=== PATIENT | male | born 1965 | race Caucasian/White ===

== ENCOUNTER 2017-10-23 09:57 | Inpatient (IN) | payer OTHER ==
[2017-10-23] MEDS ORDERED: GELATIN SIZE 100 SPONGE ×2 (11:49→13:38)
[2017-10-23] MEDS ORDERED: LIDOCAINE 0.5% (MDV) 50 ML INJ (11:50)
[2017-10-23] MEDS ORDERED: ONDANSETRON 4 MG INJ IV (12:00)
[2017-10-23] MEDS ORDERED: niCARdipine 50 MG in SOD CHLORIDE 0.9% 480 ML IV (12:00)
[2017-10-23] MEDS ORDERED: FENTAnyl 50 MCG/ML VIAL ×2 (12:10→14:23)
[2017-10-23] MEDS: THROMBIN 5000 UNIT VIAL (13:15)
[2017-10-23] MEDS: LIDOCAINE 1%/EPI 30 ML INJ (13:16)
[2017-10-23] MEDS: POLYMYXIN/BACITRACIN 1L IRRIG (13:16)
[2017-10-23] MEDS ORDERED: THROMBIN 5000 UNIT VIAL (13:38)
[2017-10-23] MEDS ORDERED: FENTAnyl 50 MCG/ML VIAL IV ×3 (14:00)
[2017-10-23] MEDS ORDERED: DIPHENHYDRAMINE 50 MG INJ IV (14:00)
[2017-10-23] MEDS ORDERED: METOCLOPRAMIDE 10 MG INJ IV (14:00)
[2017-10-23] MEDS: CEFAZOLIN 1 GM/50 ML (PMX) 50 ML IVPB ×2 (14:00→20:04)
[2017-10-23] MEDS ORDERED: HYDROmorphONE (0.2 MG/ML) 10ML SYG IV ×2 (14:00)
[2017-10-23] MEDS ORDERED: MEPERIDINE 25 MG INJ IV (14:00)
[2017-10-23] MEDS ORDERED: SUCCINYLCHOLINE CHLORIDE 100 MG/5 ML SYG IV (14:09)
[2017-10-23] MEDS ORDERED: LIDOCAINE 100 MG SYRINGE (14:09)
[2017-10-23] MEDS ORDERED: ROCURONIUM 50 MG INJ (14:09)
[2017-10-23] MEDS ORDERED: CEFAZOLIN 1 GM INJ (14:09)
[2017-10-23] MEDS ORDERED: SUGAMMADEX SODIUM 200 MG/2 ML VIAL IV (14:09)
[2017-10-23] MEDS ORDERED: PROPOFOL 20 ML (14:09)
[2017-10-23] MEDS: HYDROmorphONE (0.2 MG/ML) 10ML SYG IV ×4 (14:54→15:27)
[2017-10-23] MEDS: ONDANSETRON 4 MG INJ IV (14:54)
[2017-10-23] MEDS: DEXAMETHASONE 4 MG/ML 1 ML INJ IV ×3 (15:00→22:32)
[2017-10-23] MEDS: morphine 2 MG INJ IV ×2 (16:38→22:33)
[2017-10-23] MEDS: DEXTROSE 5%-LR 1,000 ML IV ×2 (16:38→22:33)
[2017-10-23] MEDS: HYDROCODONE/APAP (10/325) TAB PO (20:06)
[2017-10-23] MEDS: AMLODIPINE 2.5 MG TAB PO (20:08)
[2017-10-24] MEDS: CEFAZOLIN 1 GM/50 ML (PMX) 50 ML IVPB ×2 (02:56→13:28)
[2017-10-24] MEDS: HYDROCODONE/APAP (10/325) TAB PO ×2 (02:57→09:29)
[2017-10-24 06:02] LABS: ADD MAN DIFF? NO
[2017-10-24 06:09] LABS: WHITE BLOOD COUNT 19.6 10^3/ul (4.8-10.8)
[2017-10-24 06:09] LABS: ABNORMAL IP MESSAGE 1; BASOPHILS % 0.1 % (0.0-2.0); HEMATOCRIT 34.8 % (42.0-52.0); HEMOGLOBIN 12.1 g/dl (14.0-18.0); LYMPHOCYTES # 0.5 10^3/ul (0.8-2.9); LYMPHOCYTES % 2.7 % (15.0-51.0); MEAN CORPUSCULAR HEMOGLOBIN 31.8 pg (29.0-33.0); MEAN CORPUSCULAR HGB CONC 34.8 g/dl (32.0-37.0); MEAN CORPUSCULAR VOLUME 91.6 fl (82.0-101.0); MEAN PLATELET VOLUME 10.7 fl (7.4-10.4); MONOCYTES % 4.9 % (0.0-11.0); NEUTROPHIL # 17.9 10^3/ul (1.6-7.5); NEUTROPHILS % 91.7 % (39.0-77.0); PLATELET COUNT 208 10^3/UL (140-415); POSITIVE DIFF @See below; RED CELL DISTRIBUTION WIDTH 11.8 % (11.5-14.5)
[2017-10-24] MEDS: DEXAMETHASONE 4 MG/ML 1 ML INJ IV ×2 (06:32→13:28)
[2017-10-24 06:39] LABS: ANION GAP 16 (8-16); BLOOD UREA NITROGEN 18 mg/dl (7-20); CALCIUM 9.1 mg/dl (8.4-10.2); CARBON DIOXIDE 25 mmol/L (21-31); CHLORIDE 105 mmol/L (97-110); CREATININE 0.64 mg/dl (0.61-1.24); GLUCOSE 163 mg/dl (70-220); POTASSIUM 3.8 mmol/L (3.5-5.1); SODIUM 142 mmol/L (135-144)
[2017-10-24] MEDS: LOSARTAN 50 MG TAB PO (09:29)
[2017-10-24] MEDS: DEXTROSE 5%-LR 1,000 ML IV ×3 (10:59→20:55)
[2017-10-24] MEDS ORDERED: morphine 2 MG INJ IV (16:00)
[2017-10-24] MEDS: AMLODIPINE 2.5 MG TAB PO (20:55)
[2017-10-24] MEDS: HYDROCODONE/APAP (5/325) TAB PO (21:04)
[2017-10-25] MEDS: DEXTROSE 5%-LR 1,000 ML IV ×3 (00:35→16:12)
[2017-10-25 08:05] LABS: ADD MAN DIFF? NO
[2017-10-25 08:15] LABS: WHITE BLOOD COUNT 22.4 10^3/ul (4.8-10.8)
[2017-10-25 08:15] LABS: ABNORMAL IP MESSAGE 1; BASOPHILS % 0.1 % (0.0-2.0); HEMATOCRIT 35.6 % (42.0-52.0); HEMOGLOBIN 12.2 g/dl (14.0-18.0); LYMPHOCYTES % 4.4 % (15.0-51.0); MEAN CORPUSCULAR HEMOGLOBIN 32.4 pg (29.0-33.0); MEAN CORPUSCULAR HGB CONC 34.3 g/dl (32.0-37.0); MEAN CORPUSCULAR VOLUME 94.4 fl (82.0-101.0); MEAN PLATELET VOLUME 10.9 fl (7.4-10.4); MONOCYTE # 1.6 10^3/ul (0.3-0.9); MONOCYTES % 7.1 % (0.0-11.0); NEUTROPHIL # 19.7 10^3/ul (1.6-7.5); NEUTROPHILS % 87.9 % (39.0-77.0); PLATELET COUNT 204 10^3/UL (140-415); POSITIVE DIFF @See below; RED BLOOD COUNT 3.77 10^6/ul (4.70-6.10); RED CELL DISTRIBUTION WIDTH 11.9 % (11.5-14.5)
[2017-10-25 08:34] LABS: ALANINE AMINOTRANSFERASE 30 IU/L (13-69); ALBUMIN 3.8 g/dl (3.3-4.9); ALBUMIN/GLOBULIN RATIO 1.26; ALKALINE PHOSPHATASE 50 IU/L (42-121); ANION GAP 15 (8-16); ASPARTATE AMINO TRANSFERASE 30 IU/L (15-46); BILIRUBIN,INDIRECT 0.3 mg/dl (0-1.1); BILIRUBIN,TOTAL 0.3 mg/dl (0.2-1.3); BLOOD UREA NITROGEN 13 mg/dl (7-20); CALCIUM 9.2 mg/dl (8.4-10.2); CARBON DIOXIDE 29 mmol/L (21-31); CHLORIDE 105 mmol/L (97-110); CREATININE 0.63 mg/dl (0.61-1.24); GLUCOSE 121 mg/dl (70-220); POTASSIUM 3.7 mmol/L (3.5-5.1); SODIUM 145 mmol/L (135-144); TOTAL PROTEIN 6.8 g/dl (6.1-8.1)
[2017-10-25] MEDS: LOSARTAN 50 MG TAB PO (08:56)
[2017-10-25] MEDS: HYDROCODONE/APAP (5/325) TAB PO (11:40)
[2017-10-25] MEDS: AMLODIPINE 2.5 MG TAB PO (20:28)
[2017-10-26] MEDS: DEXTROSE 5%-LR 1,000 ML IV ×2 (00:35→08:35)
[2017-10-26 06:50] LABS: ADD MAN DIFF? NO
[2017-10-26 06:51] LABS: WHITE BLOOD COUNT 12.3 10^3/ul (4.8-10.8)
[2017-10-26 06:51] LABS: BASOPHILS % 0.2 % (0.0-2.0); EOSINOPHILS # 0.1 10^3/ul (0.0-0.5); EOSINOPHILS % 0.5 % (0.0-7.0); HEMATOCRIT 36.4 % (42.0-52.0); HEMOGLOBIN 12.5 g/dl (14.0-18.0); LYMPHOCYTES # 1.6 10^3/ul (0.8-2.9); LYMPHOCYTES % 13.3 % (15.0-51.0); MEAN CORPUSCULAR HEMOGLOBIN 31.8 pg (29.0-33.0); MEAN CORPUSCULAR HGB CONC 34.3 g/dl (32.0-37.0); MEAN CORPUSCULAR VOLUME 92.6 fl (82.0-101.0); MEAN PLATELET VOLUME 10.5 fl (7.4-10.4); MONOCYTE # 1.1 10^3/ul (0.3-0.9); MONOCYTES % 9.1 % (0.0-11.0); NEUTROPHIL # 9.4 10^3/ul (1.6-7.5); NEUTROPHILS % 76.5 % (39.0-77.0); PLATELET COUNT 179 10^3/UL (140-415); RED BLOOD COUNT 3.93 10^6/ul (4.70-6.10); RED CELL DISTRIBUTION WIDTH 11.9 % (11.5-14.5)
[2017-10-26 07:19] LABS: ANION GAP 13 (8-16); BLOOD UREA NITROGEN 16 mg/dl (7-20); CARBON DIOXIDE 29 mmol/L (21-31); CHLORIDE 105 mmol/L (97-110); CREATININE 0.69 mg/dl (0.61-1.24); GLUCOSE 98 mg/dl (70-220); POTASSIUM 3.8 mmol/L (3.5-5.1); SODIUM 143 mmol/L (135-144)
[2017-10-26] MEDS: ACETAMINOPHEN 325 MG TAB PO (08:47)
[2017-10-26] MEDS: LOSARTAN 50 MG TAB PO (08:47)
[2017-10-26] MEDS: AMLODIPINE 2.5 MG TAB PO (20:03)
[2017-10-27 08:28] LABS: ADD MAN DIFF? NO
[2017-10-27 08:34] LABS: WHITE BLOOD COUNT 10.7 10^3/ul (4.8-10.8)
[2017-10-27 08:34] LABS: BASOPHILS % 0.3 % (0.0-2.0); EOSINOPHILS # 0.4 10^3/ul (0.0-0.5); EOSINOPHILS % 3.5 % (0.0-7.0); HEMATOCRIT 37.2 % (42.0-52.0); LYMPHOCYTES # 1.1 10^3/ul (0.8-2.9); LYMPHOCYTES % 10.1 % (15.0-51.0); MEAN CORPUSCULAR HGB CONC 34.9 g/dl (32.0-37.0); MEAN CORPUSCULAR VOLUME 91.6 fl (82.0-101.0); MEAN PLATELET VOLUME 10.6 fl (7.4-10.4); MONOCYTE # 0.9 10^3/ul (0.3-0.9); MONOCYTES % 8.1 % (0.0-11.0); NEUTROPHIL # 8.3 10^3/ul (1.6-7.5); NEUTROPHILS % 77.6 % (39.0-77.0); PLATELET COUNT 201 10^3/UL (140-415); RED BLOOD COUNT 4.06 10^6/ul (4.70-6.10); RED CELL DISTRIBUTION WIDTH 11.7 % (11.5-14.5)
[2017-10-27] MEDS: LOSARTAN 50 MG TAB PO (08:38)
[2017-10-27 08:53] LABS: ANION GAP 18 (8-16); BLOOD UREA NITROGEN 19 mg/dl (7-20); CALCIUM 9.2 mg/dl (8.4-10.2); CARBON DIOXIDE 25 mmol/L (21-31); CHLORIDE 104 mmol/L (97-110); CREATININE 0.66 mg/dl (0.61-1.24); GLUCOSE 160 mg/dl (70-220); POTASSIUM 3.5 mmol/L (3.5-5.1); SODIUM 143 mmol/L (135-144)
== END 2017-10-27 18:19 | disposition home or self-care (01) | DRG 473 ==
LOC: REC 09:57 → ICU 16:13 → MS4 10-24 18:35
PROC: 0RG20A0 Fusion of 2 or more Cervical Vertebral Joints with Interbody Fusion Device, Anterior Approach, Anterior Column, Open Approach (ICD-10-PCS; principal; 2017-10-23 12:00)
PROC: 0RB30ZZ Excision of Cervical Vertebral Disc, Open Approach (ICD-10-PCS; 2017-10-23 12:00)
DX: M47.22 Other spondylosis with radiculopathy, cervical region (principal); M47.12 Other spondylosis with myelopathy, cervical region; M62.81 Muscle weakness (generalized); I10 Essential (primary) hypertension
CPT/HCPCS: 72040; 80048; 80053; 85025; 86850; 86900; 86901; 87081; 87086; 88304; 97161